=== PATIENT | female | born 1950 | race Hispanic/Latino ===

== ENCOUNTER 2024-05-24 19:49 | Inpatient (IN) | payer MEDICARE ==
[~2024-05-24] VITALS: Ht 162.6 cm; Wt 69.4 kg
[2024-05-24 20:41] VITALS: RESP 20
[2024-05-24 21:50] LABS: BASOPHILS # (AUTO) 0.1 (0.0-0.1); BASOPHILS % 0.3 % (0.0-1.0); EOSINOPHILS % 0.1 % (0.0-6.0); HEMATOCRIT 38.2 % (34.2-44.1); HEMOGLOBIN 11.6 g/dL (12.0-16.0); LYMPHOCYTES # (AUTO) 0.9 (1.0-3.2); LYMPHOCYTES % 5.5 % (18.0-39.1); MEAN CORPUSCULAR HEMOGLOBIN 28.6 pg (28-32); MEAN CORPUSCULAR HGB CONC 30.4 g/dL (31-35); MEAN CORPUSCULAR VOLUME 94.3 fL (81-99); NEUTROPHILS # (AUTO) 14.3 (2.1-6.9); NEUTROPHILS % 86.8 % (38.7-80.0); PLATELET COUNT 468 x10e3/uL (140-360); RED BLOOD COUNT 4.05 x10e6/uL (3.6-5.1); RED CELL DISTRIBUTION WIDTH 13.6 % (11.7-14.4); WHITE BLOOD COUNT 16.43 x10e3/uL (4.8-10.8)
[2024-05-24 22:13] LABS: ALBUMIN 1.8 g/dL (3.5-5.0); ALBUMIN/GLOBULIN RATIO 0.3 (0.8-2.0); BILIRUBIN,TOTAL 1.3 mg/dL (0.2-1.2); CALCIUM 11.2 mg/dL (8.4-10.2); CREATININE, SERUM 1.68 mg/dL (0.57-1.11); TOTAL PROTEIN 8.3 g/dL (6.5-8.1)
[2024-05-24 22:19] LABS: TROPONIN I 0.017 ng/mL (0-0.300)
[2024-05-24] MEDS ORDERED: IOPAMIDOL 370 MG/ML 100 ML INFUS..BTL INJ ONE (22:23)
[2024-05-24] MEDS: ACETAMINOPHEN 325 MG TAB PO STA (22:27)
[2024-05-25] VITALS (14 sets, daily range): BP systolic 113–158; BP diastolic 72–96; PULSE 74–117; RESP 18–25; TEMP 97.6–99.8; O2SAT 92–97
[2024-05-25] MEDS ORDERED: MAGNESIUM/ALUMINUM/SIMETHICONE 30 ML UDC PO PRN (01:45)
[2024-05-25] MEDS ORDERED: HYDRALAZINE HCL 20 MG/ML VIAL IV PRN (01:45)
[2024-05-25] MEDS ORDERED: DOCUSATE SODIUM 100 MG CAP PO PRN (01:45)
[2024-05-25] MEDS ORDERED: MELATONIN 3 MG TAB PO PRN (01:45)
[2024-05-25] MEDS ORDERED: GUAIFENESIN/DEXTROMETHORPHAN LIQD 5 ML UDC PO PRN (01:45)
[2024-05-25] MEDS ORDERED: ALBUTEROL/IPRATROPIUM 3 ML NEB NEB PRN (02:45)
[2024-05-25] MEDS: SODIUM CHLORIDE 0.9% 1000ML 1,000 ML IV SCH (03:26)
[2024-05-25] MEDS ORDERED: SIMVASTATIN20 MG PO (03:39)
[2024-05-25] MEDS ORDERED: AZITHROMYCIN250 MG PO (03:39)
[2024-05-25] MEDS ORDERED: GLIMEPIRIDE2 MG PO (03:39)
[2024-05-25] MEDS ORDERED: IRBESARTAN150 MG PO (03:39)
[2024-05-25] MEDS ORDERED: AMLODIPINE BESYL5 MG PO (03:39)
[2024-05-25] MEDS: ALBUTEROL SULF 0.083% NEB SOLN 3 ML NEB NEB PRN (11:26)
[2024-05-25 12:40] LABS: TROPONIN I 0.023 ng/mL (0-0.300)
[2024-05-25] MEDS: MULTIVITAMINS/MINERALS TAB PO SCH (13:12)
[2024-05-25] MEDS: INSULIN REGULAR, HUMAN 100 UNIT/1 ML SQ SCH (13:18)
[2024-05-25] MEDS ORDERED: DIATRIZOATE MEGL/DIATRIZOA SOD 30 ML BTL PO ONE (16:26)
[2024-05-25] MEDS: ENOXAPARIN 30 MG/0.3 ML SYR SC SCH (17:37)
[2024-05-25] MEDS: SIMVASTATIN 20 MG TAB PO SCH (21:53)
[2024-05-26] VITALS (32 sets, daily range): BP systolic 114–162; BP diastolic 66–129; PULSE 89–127; RESP 11–33; TEMP 98–99.4; O2SAT 86–98
[2024-05-26] MEDS: ONDANSETRON HCL INJ 2MG/ML 2ML 2 MG/ML VIAL IV PRN (00:04)
[2024-05-26] MEDS: Morphine 4mg INJECTION 4 MG/ML INJ IV PRN (00:04)
[2024-05-26 05:24] LABS: BASOPHILS # (AUTO) 0.1 (0.0-0.1); BASOPHILS % 0.4 % (0.0-1.0); EOSINOPHILS # (AUTO) 0.2 (0.0-0.4); EOSINOPHILS % 1.4 % (0.0-6.0); HEMOGLOBIN 11.1 g/dL (12.0-16.0); LYMPHOCYTES # (AUTO) 0.9 (1.0-3.2); MEAN CORPUSCULAR HEMOGLOBIN 28.5 pg (28-32); MEAN CORPUSCULAR HGB CONC 29.2 g/dL (31-35); MEAN CORPUSCULAR VOLUME 97.4 fL (81-99); MONOCYTES # (AUTO) 0.8 (0.2-0.8); MONOCYTES % 6.7 % (4.4-11.3); NEUTROPHILS # (AUTO) 9.4 (2.1-6.9); NEUTROPHILS % 82.3 % (38.7-80.0); PLATELET COUNT 431 x10e3/uL (140-360); RED CELL DISTRIBUTION WIDTH 14.1 % (11.7-14.4); WHITE BLOOD COUNT 11.41 x10e3/uL (4.8-10.8)
[2024-05-26 05:46] LABS: ALBUMIN 1.5 g/dL (3.5-5.0); ALBUMIN/GLOBULIN RATIO 0.3 (0.8-2.0); ANION GAP 14.1 mmol/L (8-16); BILIRUBIN,TOTAL 1.1 mg/dL (0.2-1.2); CALCIUM 10.5 mg/dL (8.4-10.2); CREATININE, SERUM 1.28 mg/dL (0.57-1.11); POTASSIUM 4.1 mmol/L (3.5-5.1); TOTAL PROTEIN 6.7 g/dL (6.5-8.1)
[2024-05-26 05:55] LABS: TROPONIN I 0.027 ng/mL (0-0.300)
[2024-05-26] MEDS: DEXTROSE 50% SYRINGE 50 ML IV PRN (06:17)
[2024-05-26] MEDS ORDERED: SYNTHROID25 MCG PO (06:46)
[2024-05-26] MEDS ORDERED: FLOMAX0.4 MG PO (06:46)
[2024-05-26] MEDS ORDERED: ALBUTEROL INH (06:49)
[2024-05-26] MEDS: AMLODIPINE BESYLATE 5 MG TAB PO SCH (08:06)
[2024-05-26 08:20] LABS: CHOL/HDL RATIO 3.7 (3.0-3.6); MAGNESIUM 1.7 MG/DL (1.3-2.1); PHOSPHORUS 3.2 MG/DL (2.3-4.7)
[2024-05-26 08:36] LABS: FREE T4 (FREE THYROXINE) 1.22 ng/dL (0.8-1.8); THYROID STIMULATING HORMONE 1.446 uIU/mL (0.350-4.940)
[2024-05-26] MEDS: INSULIN LISPRO 100 UNIT/1 ML 3ML VIAL SQ SCH (11:30)
[2024-05-26] MEDS ORDERED: PIPERACILLIN/TAZOBACTAM SOD 2.25 GM VIAL ONE (14:55)
[2024-05-26] MEDS: Vancomycin IV 1 GM in SODIUM CHLORIDE 0.9% 250ML 250 ML IV ONE (15:04)
[2024-05-26] MEDS: MUPIROCIN 2% OINT 22 GM TUBE TOP SCH (15:04)
[2024-05-26] MEDS: DEXTROSE 5%/0.45% SOD CHL 1,000 ML IV SCH (20:17)
[2024-05-27] VITALS (37 sets, daily range): BP systolic 91–161; BP diastolic 66–132; PULSE 59–122; RESP 19–39; TEMP 97.3–98.5; O2SAT 90–99
[2024-05-27] MEDS: DEXMEDETOMIDINE 400MCG/NS100ML 100 ML IV PRN ×2 (00:55→23:16)
[2024-05-27 06:37] LABS: BASOPHILS # (AUTO) 0.1 (0.0-0.1); BASOPHILS % 0.4 % (0.0-1.0); EOSINOPHILS # (AUTO) 0.2 (0.0-0.4); EOSINOPHILS % 1.7 % (0.0-6.0); HEMATOCRIT 37.2 % (34.2-44.1); HEMOGLOBIN 10.8 g/dL (12.0-16.0); LYMPHOCYTES % 7.8 % (18.0-39.1); MEAN CORPUSCULAR HEMOGLOBIN 28.4 pg (28-32); MEAN CORPUSCULAR VOLUME 97.9 fL (81-99); MONOCYTES # (AUTO) 0.8 (0.2-0.8); MONOCYTES % 6.6 % (4.4-11.3); NEUTROPHILS # (AUTO) 10.5 (2.1-6.9); NEUTROPHILS % 82.2 % (38.7-80.0); PLATELET COUNT 397 x10e3/uL (140-360); RED CELL DISTRIBUTION WIDTH 14.1 % (11.7-14.4); WHITE BLOOD COUNT 12.79 x10e3/uL (4.8-10.8)
[2024-05-27 06:59] LABS: ALBUMIN 1.4 g/dL (3.5-5.0); ALBUMIN/GLOBULIN RATIO 0.3 (0.8-2.0); ANION GAP 13.1 mmol/L (8-16); BILIRUBIN,TOTAL 0.8 mg/dL (0.2-1.2); CALCIUM 10.4 mg/dL (8.4-10.2); CREATININE, SERUM 1.08 mg/dL (0.57-1.11); POTASSIUM 4.1 mmol/L (3.5-5.1); TOTAL PROTEIN 6.7 g/dL (6.5-8.1)
[2024-05-27 10:00] LABS: INR 1.34; PROTHROMBIN TIME 17.2 seconds (11.9-14.5)
[2024-05-27] MEDS ORDERED: PROPOFOL IV EMULSION 10 MG/ML 50 ML VIAL IV PRN (23:30)
[2024-05-27] MEDS ORDERED: FENTANYL 2000MCG/NS 250 250 ML IV PRN (23:45)
[2024-05-28] VITALS (62 sets, daily range): BP systolic 53–132; BP diastolic 42–88; PULSE 59–129; RESP 0–36; TEMP 98.2–100.6; O2SAT 87–100
[2024-05-28] MEDS: PROPOFOL IV EMULSION 10MG/ML 100 ML IV PRN (00:11)
[2024-05-28] MEDS: FENTANYL 2000MCG/NS 250 250 ML IV PRN ×2 (00:16→17:11)
[2024-05-28 00:33] LABS: ABG PCO2 44 mmHg (35-45); ABG PH 7.32 (7.35-7.45)
[2024-05-28 00:35] LABS: ABG PO2 37 mmHg (80-105)
[2024-05-28 00:36] LABS: ABG HCO3 23 mmol/L (22-26); ABG TCO2 24
[2024-05-28] MEDS: SODIUM CHLORIDE 0.9% 1000ML 1,000 ML IV ONE (00:40)
[2024-05-28] MEDS ORDERED: Vancomycin IV 1 GM in SODIUM CHLORIDE 0.9% 250ML 250 ML IV ONE (01:15)
[2024-05-28] MEDS: SODIUM BICARBONATE 8.4% VIAL 50 ML in SODIUM CHLORIDE 0.45% 1,000 ML IV SCH (01:15)
[2024-05-28] MEDS: NOREPINEPHRINE 8 MG/D5W 250 ML 250 ML IV SCH (01:25)
[2024-05-28] MEDS: Vancomycin IV 1 GM in SODIUM CHLORIDE 0.9% 250ML 250 ML IV ONE (01:34)
[2024-05-28] MEDS: MEROPENEM 1 GM in SODIUM CHLORIDE 0.9% 100 ML IV ONE (01:36)
[2024-05-28] MEDS: DEXTROSE IV ONE (01:41)
[2024-05-28] MEDS: SOD CHL IV ONE (01:41)
[2024-05-28] MEDS: SODIUM BICARBONATE IV ONE (01:41)
[2024-05-28] MEDS: SODIUM CHLORIDE 0.9% 250ML 250 ML ONE (01:42)
[2024-05-28] MEDS: PROPOFOL IV EMULSION 10MG/ML 100 ML ONE (01:42)
[2024-05-28] MEDS ORDERED: SODIUM BICARBONATE 8.4% SYRING 50 ML ONE (01:43)
[2024-05-28 01:50] LABS: ABG HCO3 20 mmol/L (22-26); ABG PCO2 40 mmHg (35-45); ABG PH 7.32 (7.35-7.45); ABG PO2 53 mmHg (80-105); ABG TCO2 22
[2024-05-28 07:09] LABS: BASOPHILS # (AUTO) 0.1 (0.0-0.1); BASOPHILS % 0.6 % (0.0-1.0); EOSINOPHILS # (AUTO) 0.1 (0.0-0.4); EOSINOPHILS % 0.3 % (0.0-6.0); HEMATOCRIT 43.1 % (34.2-44.1); HEMOGLOBIN 12.3 g/dL (12.0-16.0); LYMPHOCYTES # (AUTO) 1.4 (1.0-3.2); LYMPHOCYTES % 6.7 % (18.0-39.1); MEAN CORPUSCULAR HEMOGLOBIN 28.3 pg (28-32); MEAN CORPUSCULAR HGB CONC 28.5 g/dL (31-35); MEAN CORPUSCULAR VOLUME 99.3 fL (81-99); MONOCYTES # (AUTO) 1.2 (0.2-0.8); MONOCYTES % 6.1 % (4.4-11.3); NEUTROPHILS # (AUTO) 17.1 (2.1-6.9); NEUTROPHILS % 84.2 % (38.7-80.0); PLATELET COUNT 392 x10e3/uL (140-360); RED BLOOD COUNT 4.34 x10e6/uL (3.6-5.1); WHITE BLOOD COUNT 20.25 x10e3/uL (4.8-10.8)
[2024-05-28 07:30] LABS: ABG HCO3 18 mmol/L (22-26); ABG PCO2 33 mmHg (35-45); ABG PO2 92 mmHg (80-105); ABG TCO2 19
[2024-05-28 07:39] LABS: ALBUMIN 1.4 g/dL (3.5-5.0); ALBUMIN/GLOBULIN RATIO 0.3 (0.8-2.0); ANION GAP 16.2 mmol/L (8-16); CALCIUM 10.1 mg/dL (8.4-10.2); CREATININE, SERUM 1.42 mg/dL (0.57-1.11); POTASSIUM 4.2 mmol/L (3.5-5.1); TOTAL PROTEIN 6.7 g/dL (6.5-8.1)
[2024-05-28] MEDS: LORAZEPAM INJ 2 MG/ML VIAL IV ONE ×2 (08:01→18:06)
[2024-05-28] MEDS ORDERED: MEROPENEM 1 GM in SODIUM CHLORIDE 0.9% 100 ML IV SCH ×3 (09:15→14:00)
[2024-05-28] MEDS: MEROPENEM 1 GM in SODIUM CHLORIDE 0.9% 100 ML IV SCH (09:41)
[2024-05-28 10:58] LABS: LYMPHOCYTES % (MANUAL) 6 % (19-48); MONOCYTES % (MANUAL) 5 % (3.4-9.0); NEUTROPHILS % (MANUAL) 89 % (40-74); PLATELET ESTIMATE ADEQUATE; PLATELET MORPHOLOGY COMMENT NORMAL; RBC MORPHOLOGY COMMENT NORMAL
[2024-05-28] MEDS: SODIUM BICARBONATE 8.4% VIAL 50 ML in DEXTROSE 5%/0.45% SOD CHL 1,000 ML IV SCH (15:04)
[2024-05-28 17:30] LABS: ANION GAP 9.1 mmol/L (8-16); CALCIUM 7.6 mg/dL (8.4-10.2); CREATININE, SERUM 1.48 mg/dL (0.57-1.11)
[2024-05-28 17:31] LABS: POTASSIUM 3.1 mmol/L (3.5-5.1)
[2024-05-28] MEDS: POTASSIUM CHLORIDE 20MEQ/100ML 200 ML IV ONE (17:55)
[2024-05-28] MEDS: ACETAMINOPHEN 325 MG TAB PO PRN (19:26)
[2024-05-29] VITALS (63 sets, daily range): BP systolic 84–115; BP diastolic 54–87; PULSE 65–128; RESP 17–23; TEMP 98.2–98.9; O2SAT 99–100
[2024-05-29 07:20] LABS: ABG PCO2 47 mmHg (35-45); ABG PH 7.28 (7.35-7.45); ABG PO2 109 mmHg (80-105)
[2024-05-29 07:21] LABS: ABG HCO3 22 mmol/L (22-26); ABG TCO2 24
[2024-05-29 07:22] LABS: BASOPHILS % 0.2 % (0.0-1.0); EOSINOPHILS % 0.1 % (0.0-6.0); HEMATOCRIT 31.2 % (34.2-44.1); LYMPHOCYTES # (AUTO) 0.6 (1.0-3.2); LYMPHOCYTES % 3.8 % (18.0-39.1); MEAN CORPUSCULAR HEMOGLOBIN 26.3 pg (28-32); MEAN CORPUSCULAR HGB CONC 28.2 g/dL (31-35); MEAN CORPUSCULAR VOLUME 93.1 fL (81-99); MONOCYTES % 12.3 % (4.4-11.3); NEUTROPHILS # (AUTO) 13.6 (2.1-6.9); NEUTROPHILS % 82.6 % (38.7-80.0); PLATELET COUNT 342 x10e3/uL (140-360); RED BLOOD COUNT 3.35 x10e6/uL (3.6-5.1); RED CELL DISTRIBUTION WIDTH 19.2 % (11.7-14.4); WHITE BLOOD COUNT 16.47 x10e3/uL (4.8-10.8)
[2024-05-29 07:28] LABS: HEMOGLOBIN 8.8 g/dL (12.0-16.0)
[2024-05-29 07:43] LABS: ALBUMIN 1.2 g/dL (3.5-5.0); ALBUMIN/GLOBULIN RATIO 0.2 (0.8-2.0); ANION GAP 14.6 mmol/L (8-16); CALCIUM 9.9 mg/dL (8.4-10.2); CREATININE, SERUM 2.03 mg/dL (0.57-1.11); POTASSIUM 4.6 mmol/L (3.5-5.1); TOTAL PROTEIN 6.5 g/dL (6.5-8.1)
[2024-05-29] MEDS: EPOETIN ALFA-EPBX 10,000 UNIT/ML VIAL SC SCH (09:44)
[2024-05-29 11:22] LABS: ABG HCO3 21 mmol/L (22-26); ABG PCO2 39 mmHg (35-45); ABG PH 7.35 (7.35-7.45); ABG PO2 123 mmHg (80-105); ABG TCO2 22
[2024-05-29] MEDS: SODIUM CHLORIDE 0.9% 250ML 250 ML ONE (13:13)
[2024-05-29] MEDS ORDERED: ALBUMIN 25% 25GM 100ML 0.25 GM/ML BTL IV SCH (16:10)
[2024-05-29] MEDS: ALBUMIN 25% 25GM 100ML 100 ML IV SCH (16:54)
[2024-05-29] MEDS: LACTATED RINGER'S 1,000 ML INJ SCH (17:39)
[2024-05-30] VITALS (22 sets, daily range): BP systolic 91–111; BP diastolic 61–75; PULSE 91–119; RESP 21–24; TEMP 98.1–100.9; O2SAT 96–100
[2024-05-30] MEDS: METOCLOPRAMIDE HCL 10 MG/2ML VIAL ONE (00:09)
[2024-05-30 06:46] LABS: BASOPHILS # (AUTO) 0.1 (0.0-0.1); BASOPHILS % 0.3 % (0.0-1.0); EOSINOPHILS # (AUTO) 0.4 (0.0-0.4); EOSINOPHILS % 2.6 % (0.0-6.0); LYMPHOCYTES # (AUTO) 1.4 (1.0-3.2); LYMPHOCYTES % 8.4 % (18.0-39.1); MEAN CORPUSCULAR HEMOGLOBIN 28.2 pg (28-32); MONOCYTES # (AUTO) 0.8 (0.2-0.8); MONOCYTES % 4.9 % (4.4-11.3); NEUTROPHILS % 82.3 % (38.7-80.0); PLATELET COUNT 360 x10e3/uL (140-360); RED BLOOD COUNT 3.19 x10e6/uL (3.6-5.1); RED CELL DISTRIBUTION WIDTH 14.4 % (11.7-14.4)
[2024-05-30 07:09] LABS: ALBUMIN 1.9 g/dL (3.5-5.0); ALBUMIN/GLOBULIN RATIO 0.5 (0.8-2.0); ANION GAP 12.6 mmol/L (8-16); BILIRUBIN,TOTAL 1.3 mg/dL (0.2-1.2); CALCIUM 9.6 mg/dL (8.4-10.2); CREATININE, SERUM 2.25 mg/dL (0.57-1.11); POTASSIUM 3.6 mmol/L (3.5-5.1); TOTAL PROTEIN 5.9 g/dL (6.5-8.1)
[2024-05-30 07:15] LABS: ABG HCO3 21 mmol/L (22-26); ABG PCO2 42 mmHg (35-45); ABG PO2 59 mmHg (80-105); ABG TCO2 22
[2024-05-30] MEDS ORDERED: LACTATED RINGER'S 1,000 ML INJ SCH (15:30)
[2024-05-30] MEDS: ENOXAPARIN 30 MG/0.3 ML SYR SC SCH (16:43)
[2024-05-30] MEDS: LACTATED RINGER'S 1,000 ML INJ SCH (19:33)
[2024-05-31] VITALS (61 sets, daily range): BP systolic 93–141; BP diastolic 53–98; PULSE 89–131; RESP 22–32; TEMP 98.3–100.1; O2SAT 92–100
[2024-05-31 06:56] LABS: BASOPHILS # (AUTO) 0.1 (0.0-0.1); BASOPHILS % 0.3 % (0.0-1.0); EOSINOPHILS # (AUTO) 0.4 (0.0-0.4); EOSINOPHILS % 2.6 % (0.0-6.0); HEMATOCRIT 27.8 % (34.2-44.1); HEMOGLOBIN 8.6 g/dL (12.0-16.0); LYMPHOCYTES % 5.5 % (18.0-39.1); MEAN CORPUSCULAR HEMOGLOBIN 28.5 pg (28-32); MEAN CORPUSCULAR HGB CONC 30.9 g/dL (31-35); MEAN CORPUSCULAR VOLUME 92.1 fL (81-99); MONOCYTES # (AUTO) 0.8 (0.2-0.8); MONOCYTES % 4.6 % (4.4-11.3); NEUTROPHILS # (AUTO) 14.7 (2.1-6.9); NEUTROPHILS % 85.3 % (38.7-80.0); PLATELET COUNT 315 x10e3/uL (140-360); RED BLOOD COUNT 3.02 x10e6/uL (3.6-5.1); RED CELL DISTRIBUTION WIDTH 14.5 % (11.7-14.4); WHITE BLOOD COUNT 17.19 x10e3/uL (4.8-10.8)
[2024-05-31 07:01] LABS: ABG HCO3 22 mmol/L (22-26); ABG PCO2 47 mmHg (35-45); ABG PH 7.28 (7.35-7.45); ABG PO2 62 mmHg (80-105); ABG TCO2 23
[2024-05-31 07:21] LABS: ALBUMIN 1.5 g/dL (3.5-5.0); ALBUMIN/GLOBULIN RATIO 0.4 (0.8-2.0); ANION GAP 11.7 mmol/L (8-16); CALCIUM 9.3 mg/dL (8.4-10.2); CREATININE, SERUM 1.8 mg/dL (0.57-1.11); POTASSIUM 3.7 mmol/L (3.5-5.1); TOTAL PROTEIN 5.6 g/dL (6.5-8.1)
[2024-05-31] MEDS: POLYETHYLENE GLYCOL 3350 17 GM PACK PO PRN (08:03)
[2024-05-31 12:09] LABS: ABG HCO3 24 mmol/L (22-26); ABG PCO2 46 mmHg (35-45); ABG PH 7.31 (7.35-7.45); ABG PO2 67 mmHg (80-105); ABG TCO2 24
[2024-05-31] MEDS: SODIUM CHLORIDE 0.9% 1000ML 1,000 ML IV ONE (17:53)
[2024-06-01] VITALS (56 sets, daily range): BP systolic 83–162; BP diastolic 59–88; PULSE 29–117; RESP 20–32; TEMP 97.2–99.4; O2SAT 95–100
[2024-06-01 06:19] LABS: BASOPHILS # (AUTO) 0.1 (0.0-0.1); BASOPHILS % 0.4 % (0.0-1.0); EOSINOPHILS # (AUTO) 0.4 (0.0-0.4); EOSINOPHILS % 2.8 % (0.0-6.0); HEMATOCRIT 29.5 % (34.2-44.1); HEMOGLOBIN 9.2 g/dL (12.0-16.0); LYMPHOCYTES # (AUTO) 1.1 (1.0-3.2); LYMPHOCYTES % 8.7 % (18.0-39.1); MEAN CORPUSCULAR HEMOGLOBIN 28.3 pg (28-32); MEAN CORPUSCULAR HGB CONC 31.2 g/dL (31-35); MEAN CORPUSCULAR VOLUME 90.8 fL (81-99); MONOCYTES # (AUTO) 0.9 (0.2-0.8); MONOCYTES % 6.8 % (4.4-11.3); NEUTROPHILS # (AUTO) 10.4 (2.1-6.9); NEUTROPHILS % 79.8 % (38.7-80.0); PLATELET COUNT 304 x10e3/uL (140-360); RED BLOOD COUNT 3.25 x10e6/uL (3.6-5.1); RED CELL DISTRIBUTION WIDTH 14.6 % (11.7-14.4); WHITE BLOOD COUNT 13.03 x10e3/uL (4.8-10.8)
[2024-06-01 06:36] LABS: ALBUMIN 1.4 g/dL (3.5-5.0); ALBUMIN/GLOBULIN RATIO 0.3 (0.8-2.0); ANION GAP 12.4 mmol/L (8-16); BILIRUBIN,TOTAL 0.7 mg/dL (0.2-1.2); CALCIUM 9.7 mg/dL (8.4-10.2); CREATININE, SERUM 1.59 mg/dL (0.57-1.11); POTASSIUM 4.4 mmol/L (3.5-5.1); TOTAL PROTEIN 5.9 g/dL (6.5-8.1)
[2024-06-01] MEDS: FUROSEMIDE INJ 10 MG/ML 4 ML VIAL IV ONE (09:16)
[2024-06-01 11:01] LABS: ABG HCO3 22 mmol/L (22-26); ABG PCO2 37 mmHg (35-45); ABG PH 7.37 (7.35-7.45); ABG PO2 64 mmHg (80-105); ABG TCO2 23
[2024-06-02] VITALS (32 sets, daily range): BP systolic 83–130; BP diastolic 56–79; PULSE 100–112; RESP 21–28; TEMP 98.5–100.8; O2SAT 96–100
[2024-06-02 05:39] LABS: CLARITY,URINE CLOUDY (CLEAR); COLOR,URINE YELLOW (YELLOW); LEUKOCYTE ESTERASE ,URINE NEGATIVE (NEGATIVE); PH,URINE 5.5 (5 - 7)
[2024-06-02 05:40] LABS: BILIRUBIN,URINE NEGATIVE (NEGATIVE); GLUCOSE, URINE NEGATIVE (NEGATIVE); KETONES,URINE NEGATIVE (NEGATIVE); NITRITE,URINE NEGATIVE (NEGATIVE); PROTEIN,URINE DIPSTICK TRACE (NEGATIVE); URINE UROBILINOGEN 0.2 mg/dL (0.2 - 1)
[2024-06-02 05:48] LABS: AMORPHOUS SEDIMENT,URINE MODERATE (FEW); BACTERIA,URINE MODERATE /HPF; TRANSITIONAL EPI CELLS,URINE RARE
[2024-06-02 06:10] LABS: EOSINOPHIL SMEAR,URINE NONE SEEN (NONE SEEN)
[2024-06-02 06:59] LABS: BASOPHILS % 0.3 % (0.0-1.0); EOSINOPHILS # (AUTO) 0.4 (0.0-0.4); EOSINOPHILS % 3.9 % (0.0-6.0); HEMATOCRIT 26.5 % (34.2-44.1); LYMPHOCYTES % 10.7 % (18.0-39.1); MEAN CORPUSCULAR HEMOGLOBIN 28.1 pg (28-32); MEAN CORPUSCULAR HGB CONC 30.2 g/dL (31-35); MONOCYTES # (AUTO) 0.9 (0.2-0.8); MONOCYTES % 9.6 % (4.4-11.3); NEUTROPHILS # (AUTO) 6.7 (2.1-6.9); PLATELET COUNT 308 x10e3/uL (140-360); RED BLOOD COUNT 2.85 x10e6/uL (3.6-5.1); RED CELL DISTRIBUTION WIDTH 14.9 % (11.7-14.4); WHITE BLOOD COUNT 9.07 x10e3/uL (4.8-10.8)
[2024-06-02 09:12] LABS: ALBUMIN 1.2 g/dL (3.5-5.0); ALBUMIN/GLOBULIN RATIO 0.3 (0.8-2.0); ANION GAP 12.1 mmol/L (8-16); BILIRUBIN,TOTAL 0.4 mg/dL (0.2-1.2); CALCIUM 9.4 mg/dL (8.4-10.2); CREATININE, SERUM 1.45 mg/dL (0.57-1.11); POTASSIUM 4.1 mmol/L (3.5-5.1); TOTAL PROTEIN 5.7 g/dL (6.5-8.1)
[2024-06-02 11:07] LABS: ABG HCO3 24 mmol/L (22-26); ABG PCO2 45 mmHg (35-45); ABG PH 7.33 (7.35-7.45); ABG PO2 72 mmHg (80-105); ABG TCO2 25
[2024-06-03] VITALS (29 sets, daily range): BP systolic 81–140; BP diastolic 53–75; PULSE 96–113; RESP 22–31; TEMP 98.4–99.9; O2SAT 95–100
[2024-06-03 07:04] LABS: BASOPHILS % 0.5 % (0.0-1.0); EOSINOPHILS # (AUTO) 0.3 (0.0-0.4); EOSINOPHILS % 3.2 % (0.0-6.0); HEMATOCRIT 25.5 % (34.2-44.1); LYMPHOCYTES # (AUTO) 1.2 (1.0-3.2); LYMPHOCYTES % 15.2 % (18.0-39.1); MEAN CORPUSCULAR HEMOGLOBIN 28.1 pg (28-32); MEAN CORPUSCULAR HGB CONC 30.2 g/dL (31-35); MEAN CORPUSCULAR VOLUME 93.1 fL (81-99); MONOCYTES # (AUTO) 0.8 (0.2-0.8); MONOCYTES % 10.6 % (4.4-11.3); NEUTROPHILS # (AUTO) 5.2 (2.1-6.9); NEUTROPHILS % 67.8 % (38.7-80.0); PLATELET COUNT 382 x10e3/uL (140-360); RED BLOOD COUNT 2.74 x10e6/uL (3.6-5.1); RED CELL DISTRIBUTION WIDTH 15.1 % (11.7-14.4); WHITE BLOOD COUNT 7.71 x10e3/uL (4.8-10.8)
[2024-06-03 07:06] LABS: HEMOGLOBIN 7.7 g/dL (12.0-16.0)
[2024-06-03 07:18] LABS: ABG HCO3 24 mmol/L (22-26); ABG PCO2 38 mmHg (35-45); ABG PH 7.42 (7.35-7.45); ABG PO2 70 mmHg (80-105); ABG TCO2 25
[2024-06-03 07:21] LABS: ALBUMIN 1.2 g/dL (3.5-5.0); ALBUMIN/GLOBULIN RATIO 0.3 (0.8-2.0); ANION GAP 12.4 mmol/L (8-16); BILIRUBIN,TOTAL 0.4 mg/dL (0.2-1.2); CALCIUM 9.6 mg/dL (8.4-10.2); CREATININE, SERUM 1.4 mg/dL (0.57-1.11); POTASSIUM 4.4 mmol/L (3.5-5.1); TOTAL PROTEIN 5.7 g/dL (6.5-8.1)
[2024-06-03 07:31] LABS: ABG HCO3 24 mmol/L (22-26); ABG PCO2 38 mmHg (35-45); ABG PH 7.42 (7.35-7.45); ABG PO2 70 mmHg (80-105); ABG TCO2 25
[2024-06-03] MEDS: FUROSEMIDE INJ 10 MG/ML 4 ML VIAL IV ONE (09:08)
[2024-06-03] MEDS: FENTANYL 2000MCG/NS 250 250 ML IV PRN (12:00)
[2024-06-03] MEDS: PROPOFOL IV EMULSION 10MG/ML 100 ML IV PRN (12:00)
[2024-06-03] MEDS: SODIUM CHLORIDE 0.9% 250ML 250 ML IV ONE (16:21)
[2024-06-04] VITALS (37 sets, daily range): BP systolic 93–170; BP diastolic 58–92; PULSE 82–122; RESP 23–36; TEMP 98.1–98.8; O2SAT 88–100
[2024-06-04 06:44] LABS: BASOPHILS # (AUTO) 0.1 (0.0-0.1); BASOPHILS % 0.7 % (0.0-1.0); EOSINOPHILS # (AUTO) 0.3 (0.0-0.4); EOSINOPHILS % 3.6 % (0.0-6.0); HEMATOCRIT 29.4 % (34.2-44.1); HEMOGLOBIN 8.9 g/dL (12.0-16.0); LYMPHOCYTES # (AUTO) 1.5 (1.0-3.2); LYMPHOCYTES % 16.4 % (18.0-39.1); MEAN CORPUSCULAR HEMOGLOBIN 27.7 pg (28-32); MEAN CORPUSCULAR HGB CONC 30.3 g/dL (31-35); MEAN CORPUSCULAR VOLUME 91.6 fL (81-99); MONOCYTES % 11.7 % (4.4-11.3); NEUTROPHILS # (AUTO) 5.8 (2.1-6.9); NEUTROPHILS % 65.4 % (38.7-80.0); PLATELET COUNT 413 x10e3/uL (140-360); RED BLOOD COUNT 3.21 x10e6/uL (3.6-5.1); WHITE BLOOD COUNT 8.82 x10e3/uL (4.8-10.8)
[2024-06-04 06:58] LABS: ABG HCO3 28 mmol/L (22-26); ABG PCO2 47 mmHg (35-45); ABG PH 7.36 (7.35-7.45); ABG PO2 52 mmHg (80-105); ABG TCO2 28
[2024-06-04 07:11] LABS: INR 1.17; PROTHROMBIN TIME 15.6 seconds (11.9-14.5)
[2024-06-04 07:31] LABS: ALBUMIN 1.3 g/dL (3.5-5.0); ALBUMIN/GLOBULIN RATIO 0.3 (0.8-2.0); ANION GAP 14.5 mmol/L (8-16); BILIRUBIN,TOTAL 0.6 mg/dL (0.2-1.2); CALCIUM 10.2 mg/dL (8.4-10.2); CREATININE, SERUM 1.18 mg/dL (0.57-1.11); POTASSIUM 4.5 mmol/L (3.5-5.1); TOTAL PROTEIN 6.2 g/dL (6.5-8.1)
[2024-06-04 07:53] LABS: MAGNESIUM 1.8 MG/DL (1.3-2.1); PHOSPHORUS 4.1 MG/DL (2.3-4.7)
[2024-06-04] MEDS ORDERED: BUPIVACAINE 0.5%/EPI 30 ML SDV INJ ONE (10:31)
[2024-06-05] VITALS (73 sets, daily range): BP systolic 72–150; BP diastolic 50–84; PULSE 61–121; RESP 22–36; TEMP 98.6–101.7; O2SAT 92–100
[2024-06-05 07:02] LABS: BASOPHILS # (AUTO) 0.1 (0.0-0.1); BASOPHILS % 0.5 % (0.0-1.0); EOSINOPHILS # (AUTO) 0.2 (0.0-0.4); HEMATOCRIT 29.3 % (34.2-44.1); HEMOGLOBIN 8.6 g/dL (12.0-16.0); LYMPHOCYTES # (AUTO) 1.1 (1.0-3.2); LYMPHOCYTES % 9.3 % (18.0-39.1); MEAN CORPUSCULAR HEMOGLOBIN 27.5 pg (28-32); MEAN CORPUSCULAR HGB CONC 29.4 g/dL (31-35); MEAN CORPUSCULAR VOLUME 93.6 fL (81-99); MONOCYTES # (AUTO) 1.1 (0.2-0.8); MONOCYTES % 9.4 % (4.4-11.3); NEUTROPHILS % 77.5 % (38.7-80.0); PLATELET COUNT 450 x10e3/uL (140-360); RED BLOOD COUNT 3.13 x10e6/uL (3.6-5.1); RED CELL DISTRIBUTION WIDTH 15.2 % (11.7-14.4); WHITE BLOOD COUNT 11.56 x10e3/uL (4.8-10.8)
[2024-06-05 07:25] LABS: ALBUMIN 1.3 g/dL (3.5-5.0); ALBUMIN/GLOBULIN RATIO 0.3 (0.8-2.0); ANION GAP 13.7 mmol/L (8-16); BILIRUBIN,TOTAL 0.5 mg/dL (0.2-1.2); CALCIUM 10.6 mg/dL (8.4-10.2); POTASSIUM 4.7 mmol/L (3.5-5.1); TOTAL PROTEIN 6.4 g/dL (6.5-8.1)
[2024-06-05] MEDS: LACTATED RINGER'S 500 ML INJ ONE (08:40)
[2024-06-05] MEDS: ACETAMINOPHEN 650 MG SUPP PR ONE (10:12)
[2024-06-05] MEDS: NOREPINEPHRINE 8 MG/D5W 250 ML 250 ML IV SCH (11:32)
[2024-06-05 12:53] LABS: ABG HCO3 28 mmol/L (22-26); ABG PCO2 53 mmHg (35-45); ABG PH 7.32 (7.35-7.45); ABG PO2 84 mmHg (80-105); ABG TCO2 29
[2024-06-06] VITALS (54 sets, daily range): BP systolic 83–153; BP diastolic 51–96; PULSE 38–117; RESP 25–37; TEMP 98.9–100.8; O2SAT 87–100
[2024-06-06] MEDS: SIMVASTATIN 20 MG TAB PO SCH (00:25)
[2024-06-06] MEDS: ACETAMINOPHEN 325 MG TAB PO PRN (00:25)
[2024-06-06 07:11] LABS: BASOPHILS # (AUTO) 0.1 (0.0-0.1); BASOPHILS % 0.7 % (0.0-1.0); EOSINOPHILS # (AUTO) 0.3 (0.0-0.4); EOSINOPHILS % 2.6 % (0.0-6.0); HEMATOCRIT 27.6 % (34.2-44.1); LYMPHOCYTES # (AUTO) 1.2 (1.0-3.2); MEAN CORPUSCULAR HEMOGLOBIN 28.4 pg (28-32); MEAN CORPUSCULAR VOLUME 97.9 fL (81-99); MONOCYTES % 8.4 % (4.4-11.3); NEUTROPHILS # (AUTO) 9.1 (2.1-6.9); NEUTROPHILS % 77.2 % (38.7-80.0); PLATELET COUNT 433 x10e3/uL (140-360); RED BLOOD COUNT 2.82 x10e6/uL (3.6-5.1); WHITE BLOOD COUNT 11.78 x10e3/uL (4.8-10.8)
[2024-06-06 07:35] LABS: ALBUMIN 1.2 g/dL (3.5-5.0); ALBUMIN/GLOBULIN RATIO 0.2 (0.8-2.0); ANION GAP 11.5 mmol/L (8-16); BILIRUBIN,TOTAL 0.5 mg/dL (0.2-1.2); CREATININE, SERUM 0.9 mg/dL (0.57-1.11); POTASSIUM 4.5 mmol/L (3.5-5.1); TOTAL PROTEIN 6.1 g/dL (6.5-8.1)
[2024-06-06 11:22] LABS: ABG HCO3 18 mmol/L (22-26); ABG PCO2 33 mmHg (35-45); ABG PH 7.34 (7.35-7.45); ABG PO2 92 mmHg (80-105); ABG TCO2 19
[2024-06-06 11:22] LABS: ABG HCO3 28 mmol/L (22-26); ABG PCO2 53 mmHg (35-45); ABG PH 7.32 (7.35-7.45); ABG PO2 84 mmHg (80-105); ABG TCO2 29
[2024-06-06 11:22] LABS: ABG HCO3 22 mmol/L (22-26); ABG PCO2 37 mmHg (35-45); ABG PH 7.37 (7.35-7.45); ABG PO2 64 mmHg (80-105); ABG TCO2 23
[2024-06-06 11:22] LABS: ABG HCO3 24 mmol/L (22-26); ABG PCO2 45 mmHg (35-45); ABG PH 7.33 (7.35-7.45); ABG PO2 72 mmHg (80-105); ABG TCO2 25
[2024-06-10 05:39] LABS: ABG HCO3 24 mmol/L (22-26); ABG PCO2 38 mmHg (35-45); ABG PH 7.42 (7.35-7.45); ABG PO2 70 mmHg (80-105); ABG TCO2 25
[2024-06-10 06:00] LABS: ABG HCO3 27 mmol/L (22-26); ABG PCO2 47 mmHg (35-45); ABG PH 7.36 (7.35-7.45); ABG PO2 52 mmHg (80-105); ABG TCO2 28
[2024-06-10 06:51] LABS: ABG HCO3 21 mmol/L (22-26); ABG PCO2 39 mmHg (35-45); ABG PH 7.35 (7.35-7.45); ABG PO2 123 mmHg (80-105); ABG TCO2 22
[2024-06-10 06:51] LABS: ABG HCO3 22 mmol/L (22-26); ABG PCO2 47 mmHg (35-45); ABG PH 7.28 (7.35-7.45); ABG PO2 61 mmHg (80-105); ABG TCO2 23
[2024-06-10 06:51] LABS: ABG HCO3 21 mmol/L (22-26); ABG PCO2 42 mmHg (35-45); ABG PH 7.31 (7.35-7.45); ABG PO2 60 mmHg (80-105); ABG TCO2 22
[2024-06-10 06:51] LABS: ABG HCO3 23 mmol/L (22-26); ABG PCO2 44 mmHg (35-45); ABG PH 7.32 (7.35-7.45); ABG PO2 37 mmHg (80-105); ABG TCO2 24
[2024-06-10 06:51] LABS: ABG HCO3 23 mmol/L (22-26); ABG PCO2 46 mmHg (35-45); ABG PH 7.31 (7.35-7.45); ABG PO2 67 mmHg (80-105); ABG TCO2 24
[2024-06-10 06:51] LABS: ABG HCO3 20 mmol/L (22-26); ABG PCO2 40 mmHg (35-45); ABG PH 7.32 (7.35-7.45); ABG PO2 53 mmHg (80-105); ABG TCO2 22
[2024-06-10 06:51] LABS: ABG HCO3 21 mmol/L (22-26); ABG PCO2 42 mmHg (35-45); ABG PO2 59 mmHg (80-105); ABG TCO2 22
[2024-06-10 06:51] LABS: ABG HCO3 22 mmol/L (22-26); ABG PCO2 47 mmHg (35-45); ABG PH 7.28 (7.35-7.45); ABG PO2 109 mmHg (80-105); ABG TCO2 24
== END 2024-06-06 21:33 | disposition hospice, inpatient (51) | DRG 870 ==
LOC: ER 19:52 → ERHOLD 05-25 01:05 → MED/SURG2 05-25 02:26 → ICU 05-26 08:31
PROVIDERS: ADMIT Internal Medicine; ATTEND Internal Medicine
PROC: 3E03329 Introduction of Other Anti-infective into Peripheral Vein, Percutaneous Approach (ICD-10-PCS; 2024-05-24)
PROC: 02HV33Z Insertion of Infusion Device into Superior Vena Cava, Percutaneous Approach (ICD-10-PCS; 2024-05-26)
PROC: B548ZZA Ultrasonography of Superior Vena Cava, Guidance (ICD-10-PCS; 2024-05-26)
PROC: 4A033R1 Measurement of Arterial Saturation, Peripheral, Percutaneous Approach (ICD-10-PCS; principal; 2024-05-27)
PROC: 5A0935A Assistance with Respiratory Ventilation, Less than 24 Consecutive Hours, High Flow/Velocity Cannula (ICD-10-PCS; 2024-05-27)
PROC: 3E033XZ Introduction of Vasopressor into Peripheral Vein, Percutaneous Approach (ICD-10-PCS; 2024-05-27)
PROC: 5A1955Z Respiratory Ventilation, Greater than 96 Consecutive Hours (ICD-10-PCS; 2024-05-28)
PROC: 4A033R1 Measurement of Arterial Saturation, Peripheral, Percutaneous Approach (ICD-10-PCS; 2024-05-28)
PROC: 4A033R1 Measurement of Arterial Saturation, Peripheral, Percutaneous Approach (ICD-10-PCS; 2024-05-28)
PROC: 4A033R1 Measurement of Arterial Saturation, Peripheral, Percutaneous Approach (ICD-10-PCS; 2024-05-28)
PROC: 4A033R1 Measurement of Arterial Saturation, Peripheral, Percutaneous Approach (ICD-10-PCS; 2024-05-28)
PROC: 0BH17EZ Insertion of Endotracheal Airway into Trachea, Via Natural or Artificial Opening (ICD-10-PCS; 2024-05-28)
PROC: 0W993ZZ Drainage of Right Pleural Cavity, Percutaneous Approach (ICD-10-PCS; 2024-05-28)
DX: A41.9 Sepsis, unspecified organism (principal); J85.0 Gangrene and necrosis of lung; J96.01 Acute respiratory failure with hypoxia; N17.0 Acute kidney failure with tubular necrosis; G93.41 Metabolic encephalopathy; E44.0 Moderate protein-calorie malnutrition; E87.20 Acidosis, unspecified; C78.7 Secondary malignant neoplasm of liver and intrahepatic bile duct; C79.51 Secondary malignant neoplasm of bone; C34.91 Malignant neoplasm of unspecified part of right bronchus or lung; C78.02 Secondary malignant neoplasm of left lung; J91.0 Malignant pleural effusion; E87.1 Hypo-osmolality and hyponatremia; R65.20 Severe sepsis without septic shock; E86.0 Dehydration; R63.4 Abnormal weight loss; Z68.26 Body mass index [BMI] 26.0-26.9, adult; D63.8 Anemia in other chronic diseases classified elsewhere; E83.52 Hypercalcemia; E11.22 Type 2 diabetes mellitus with diabetic chronic kidney disease; I12.9 Hypertensive chronic kidney disease with stage 1 through stage 4 chronic kidney disease, or unspecified chronic kidney disease; N18.9 Chronic kidney disease, unspecified; F17.200 Nicotine dependence, unspecified, uncomplicated; I07.1 Rheumatic tricuspid insufficiency; Z71.3 Dietary counseling and surveillance; R59.0 Localized enlarged lymph nodes; E88.09 Other disorders of plasma-protein metabolism, not elsewhere classified; N63.20 Unspecified lump in the left breast, unspecified quadrant; E89.0 Postprocedural hypothyroidism; R13.19 Other dysphagia; E87.8 Other disorders of electrolyte and fluid balance, not elsewhere classified; G71.00 Muscular dystrophy, unspecified; R53.81 Other malaise; Z78.1 Physical restraint status; Z66 Do not resuscitate; Z11.52 Encounter for screening for COVID-19; Z85.41 Personal history of malignant neoplasm of cervix uteri; Z79.899 Other long term (current) drug therapy
CPT/HCPCS: 31500; 32555; 36415; 36569; 36600; 71045; 71260; 74018; 74176; 74470; 80048; 80053; 80061; 81001; 81015; 82533; 82550; 82805; 82948; 83036; 83605; 83690; 83735; 83880; 83930; 83935; 84100; 84295; 84300; 84439; 84443; 84484; 85025; 85610; 85730; 86850; 86900; 86920; 87040; 87070; 87205; 93005; 93306; 94002; 94003; 94640; 94799; 96361; 99252; 99284; C1729; J1650; J1940; J2060; J2185; J2270; J2405; J2470; J2543; J2765; J3010; J3480; J7030; J7050; J7799; P9047; Q9963; Q9967; U0002

== ENCOUNTER 2024-06-06 21:43 | Inpatient (IN) | payer MEDICARE, OTHER ==
[~2024-06-06] VITALS: Ht 162.6 cm; Wt 69.4 kg
[~2024-06-06 21:43] MED LIST: ALBUTEROL INH; AMLODIPINE BESYL5 MG PO; AZITHROMYCIN250 MG PO; FLOMAX0.4 MG PO; GLIMEPIRIDE2 MG PO; IRBESARTAN150 MG PO; SIMVASTATIN20 MG PO; SYNTHROID25 MCG PO
[2024-06-06] MEDS ORDERED: ACETAMINOPHEN 650 MG SUPP PR PRN (22:00)
[2024-06-06] MEDS ORDERED: ONDANSETRON HCL INJ 2MG/ML 2ML 2 MG/ML VIAL IV PRN (22:00)
[2024-06-06] MEDS ORDERED: LORAZEPAM INJ 2 MG/ML VIAL IV PRN ×2 (22:00→23:45)
[2024-06-06] MEDS ORDERED: SCOPOLAMINE 1 MG PATCH TD PRN (22:00)
[2024-06-06] MEDS ORDERED: LORAZEPAM 1 MG TAB PO PRN (22:00)
[2024-06-06] MEDS ORDERED: Morphine 4mg INJECTION 4 MG/ML INJ IV PRN (22:00)
[2024-06-06 22:05] VITALS: BP 135/75; PULSE 136; RESP 38; TEMP 98.9; O2SAT 95
[2024-06-06] MEDS ORDERED: FENTANYL 2000MCG/NS 250 250 ML IV PRN (23:00)
[2024-06-06] MEDS: Morphine 4mg INJECTION 4 MG/ML INJ IV PRN (23:06)
[2024-06-06] MEDS ORDERED: LORAZEPAM INJ 2 MG/ML VIAL IV SCH (23:30)
[2024-06-06] MEDS: LORAZEPAM INJ 2 MG/ML VIAL IV ONE (23:37)
[2024-06-06] MEDS: Morphine 4mg INJECTION 4 MG/ML INJ IV ONE (23:37)
[2024-06-07] MEDS: FENTANYL 2000MCG/NS 250 250 ML IV PRN (00:58)
[2024-06-07] MEDS: LORAZEPAM INJ 2 MG/ML VIAL IV SCH (01:10)
[2024-06-07] MEDS: Morphine 4mg INJECTION 4 MG/ML INJ IV SCH (02:13)
[2024-06-07] MEDS: LORAZEPAM INJ 2 MG/ML VIAL IV PRN (03:12)
[2024-06-07 20:00] VITALS: BP 91/62; PULSE 101; RESP 28; TEMP 99.4; O2SAT 99
[2024-06-08] VITALS: BP 91/60; PULSE 109; O2SAT 100
[2024-06-08 04:00] VITALS: BP 89/69; PULSE 100; RESP 28; O2SAT 100
== END 2024-06-08 14:00 | disposition expired | DRG 951 ==
LOC: ICU 21:43
PROVIDERS: ADMIT Internal Medicine; ATTEND Internal Medicine
DX: Z51.5 Encounter for palliative care (principal); A41.9 Sepsis, unspecified organism; J85.0 Gangrene and necrosis of lung; J96.01 Acute respiratory failure with hypoxia; N17.0 Acute kidney failure with tubular necrosis; G93.41 Metabolic encephalopathy; E87.0 Hyperosmolality and hypernatremia; E44.0 Moderate protein-calorie malnutrition; C78.7 Secondary malignant neoplasm of liver and intrahepatic bile duct; C79.51 Secondary malignant neoplasm of bone; C34.91 Malignant neoplasm of unspecified part of right bronchus or lung; C78.02 Secondary malignant neoplasm of left lung; J91.0 Malignant pleural effusion; Z68.26 Body mass index [BMI] 26.0-26.9, adult; Z66 Do not resuscitate
CPT/HCPCS: 94003; J2060; J2270